=== PATIENT | female | born 1990 | race Caucasian/White ===

== ENCOUNTER 2020-11-26 22:23 | Emergency (ER) | payer OTHER ==
[~2020-11-26] VITALS: Ht 165.1 cm; Wt 56.7 kg
[2020-11-26 22:34] VITALS: BP 112/68
--- NOTE | 2020-11-26 22:34 | NUR ---
TO BED AMBULATORY
--- NOTE | 2020-11-26 22:45 | NUR ---
PATIENT BIB SELF, AMBULATORY, C/O JAW PAIN THAT RADIATES TO THE RIGHT EAR, NO PALPABLE SWELLING IN THE NECK BILATERAL, TONSILS LOOKS NORMAL BILATERAL, C/O SORE THROUTH, DENIES NASAL CONGESTION. MDHX: SINUS SX 10 YEARS AGO ALLERGIES: DUST
--- NOTE | 2020-11-26 23:36 | NUR ---
Dr. Blackburn examining patient.
[2020-11-27] MEDS ORDERED: AMOX500C25 PO (00:02)
[2020-11-27] MEDS ORDERED: ACETAMINOPHEN EXTRA STRENGTH 500 MG TAB PO ONE (00:05)
[2020-11-27] MEDS ORDERED: AMOXICILLIN 500 MG CAP PO ONE (00:05)
--- NOTE | 2020-11-27 00:13 | NUR ---
LAB AT BEDSIDE COLLECTING BLOOD SAMPLE.
[2020-11-27 00:40] VITALS: BP 94/69
--- NOTE | 2020-11-27 00:40 | NUR ---
Patient discharged with v/s stable. Written and verbal after care instructions given and explained. Patient alert, oriented and verbalized understanding of instructions. Ambulatory with steady gait. All questions addressed prior to discharge. ID band removed. Patient advised to follow up with PMD. Rx of AMOXICILIN given. Patient educated on indication of medication including possible reaction and side effects. Opportunity to ask questions provided and answered.
== END 2020-11-27 00:40 | disposition home or self-care (01) ==
LOC: MED 22:23
DX: R59.1 Generalized enlarged lymph nodes (principal); H92.01 Otalgia, right ear; M54.2 Cervicalgia; J02.9 Acute pharyngitis, unspecified
CPT/HCPCS: 86308; 99283

== ENCOUNTER 2021-03-10 09:06 | Emergency (ER) | payer OTHER ==
[~2021-03-10] VITALS: Ht 165.1 cm; Wt 56.7 kg
[~2021-03-10 09:06] MED LIST: AMOX500C25 PO
[2021-03-10 09:13] VITALS: BP 92/70
--- NOTE | 2021-03-10 09:32 | NUR ---
Rectal exam performed per DR TINEO with AUDREY GRIER at bedside during procedure. Patient tolerated well.
[2021-03-10] MEDS ORDERED: LIDO5GEL3 TP (09:36)
[2021-03-10] MEDS ORDERED: MIRABULK PO (09:36)
[2021-03-10] MEDS ORDERED: DOCU-299 PO (09:36)
--- NOTE | 2021-03-10 09:49 | NUR ---
NO NURSING INTERVENTIONS IMPLEMENTED
[2021-03-10 09:50] VITALS: BP 92/70
--- NOTE | 2021-03-10 09:50 | NUR ---
Patient discharged with v/s stable. Written and verbal after care instructions given and explained. Patient alert, oriented and verbalized understanding of instructions. Ambulatory with steady gait. All questions addressed prior to discharge. ID band removed. Patient advised to follow up with PMD. Rx of COLACE, LIDOCAINE, MIRALAX given. Patient educated on indication of medication including possible reaction and side effects. Opportunity to ask questions provided and answered. Surgery Outpatient List provided for patient.
== END 2021-03-10 09:50 | disposition home or self-care (01) ==
LOC: MED 09:06
DX: K64.8 Other hemorrhoids (principal); Z79.899 Other long term (current) drug therapy
CPT/HCPCS: 99282

== ENCOUNTER 2021-08-18 17:26 | Emergency (ER) | payer OTHER ==
[~2021-08-18] VITALS: Ht 165.1 cm; Wt 57.2 kg
[~2021-08-18 17:26] MED LIST changes: +DOCU-299 PO; +LIDO5GEL3 TP; +MIRABULK PO
[2021-08-18 17:42] VITALS: BP 91/64
--- NOTE | 2021-08-18 18:18 | NUR ---
URINE SPECIMEN COLLECTED AND WALKED TO LAB.
--- NOTE | 2021-08-18 18:26 | NUR ---
30/F BIB SELF, AA&OX4, AMBULATORY W/ STEADY GAIT; PRESENTS TO ED WITH C/O SUPRAPUBIC, ABDOMINAL AND BACK PAIN X3 DAYS 09/19 WORSENS W/ URINATION. PATIENT ALSO PRESENTS W/ DYSURIA, HEMATURIA AND HEADACHE. PATIENT STATES " I HAVE HAD A UTI SINCE MONDAY." PATIENT DENIES SEEKING MEDICAL ATTENTION FOR DX AND MEDS FOR PAIN RELIEF. -V/D, SOB, CP, FEVER, CHILLS. PMH: KIDNEY INFECTION 2019 MEDS: DENIES ALLERGIES: DUST
--- NOTE | 2021-08-18 18:40 | NUR ---
30/F BIB SELF WITH C/O LOWER ABDOMINAL PAIN RADIATING TO HER BACK X3 DAYS. STATES PAIN WORSENS WITH URINATION, REPORTS HEMATURIA AND HEADACHE. DENIES TAKING MEDICATION FOR PAIN, DENIES V/D, SOB, FEVER, CHILLS.
[2021-08-18] MEDS ORDERED: IBUPROFEN 600 MG TAB PO ONE (19:05)
[2021-08-18] MEDS ORDERED: IBUP-2213 PO (19:11)
[2021-08-18] MEDS ORDERED: NITR100C7 PO (19:11)
[2021-08-18] MEDS ORDERED: PYR100 PO (19:11)
--- NOTE | 2021-08-18 19:25 | NUR ---
Pt report given to CARRIE ALMODOVAR. Transfer of care at this time.
[2021-08-18] MEDS ORDERED: IBUPROFEN 600 MG TAB ONE (19:32)
--- NOTE | 2021-08-18 19:45 | NUR ---
PT REFUSED IBUPROFEN
[2021-08-18 20:00] VITALS: BP 91/64
--- NOTE | 2021-08-18 20:00 | NUR ---
Patient discharged with v/s stable. Written and verbal after care instructions given and explained. Patient alert, oriented and verbalized understanding of instructions. Ambulatory with steady gait. All questions addressed prior to discharge. ID band removed. Patient advised to follow up with PMD. Rx of IBRUPROFEN, MACROBID,PYRIDIUM given. Opportunity to ask questions provided and answered.
== END 2021-08-18 20:00 | disposition home or self-care (01) ==
LOC: MED 17:26
DX: N39.0 Urinary tract infection, site not specified (principal); M54.9 Dorsalgia, unspecified; Z79.899 Other long term (current) drug therapy
CPT/HCPCS: 81002; 81025; 87086; 99283

== ENCOUNTER 2022-01-02 16:16 | Emergency (ER) | payer OTHER ==
[~2022-01-02] VITALS: Ht 165.1 cm; Wt 61.2 kg
[~2022-01-02 16:16] MED LIST changes: +IBUP-2213 PO; +NITR100C7 PO; +PYR100 PO
[2022-01-02 16:37] VITALS: BP 96/62
--- NOTE | 2022-01-02 18:00 | NUR ---
C/O STUFFY NOSE X YESTERDAY, C/O COUGH, FEVER,SORE THROAT, TAPIA X TODAY. ORAL TEMP 99.1 AT THIS TIME. COVID TESTED NEGATIVE TODAY. PMH: MIGRAINES, SINUSITIS
--- NOTE | 2022-01-02 18:33 | NUR ---
pt swabbed for influenza at this time
[2022-01-02] MEDS ORDERED: BENZ200C4 PO (18:55)
[2022-01-02] MEDS ORDERED: FLUT0.0560 NS (18:55)
[2022-01-02 19:10] VITALS: BP 110/66
== END 2022-01-02 19:16 | disposition home or self-care (01) ==
LOC: MED 16:16
DX: J32.9 Chronic sinusitis, unspecified (principal)
CPT/HCPCS: 99283

== ENCOUNTER 2022-09-08 23:02 | Emergency (ER) | payer OTHER ==
[~2022-09-08] VITALS: Ht 165.1 cm; Wt 59.0 kg
[~2022-09-08 23:02] MED LIST changes: +BENZ200C4 PO; +FLUT0.0560 NS
[2022-09-08 23:20] VITALS: BP 102/58
--- NOTE | 2022-09-08 23:23 | NUR ---
TO LOBBY A/W BED AMBULATORY
--- NOTE | 2022-09-09 00:15 | NUR ---
PT TO BED #9
--- NOTE | 2022-09-09 00:30 | NUR ---
RECEIVED IN BED 9 WITH C/O RECTAL BLEEDING WITH HEMORRHOIDS, BILATERAL FLANK PAIN, WITH LOWER AND UPPER TOO. F0R 10DAYS
[2022-09-09 00:42] LABS: BASOPHILS # (AUTO) 0.1 K/uL (0.00-0.22); BASOPHILS % (AUTO) 0.9 % (0.0-2.0); EOSINOPHILS # (AUTO) 0.3 K/uL (0-0.4); EOSINOPHILS % (AUTO) 2.9 % (0.0-4.0); HEMOGLOBIN 12.6 g/dL (12.0-16.0); LYMPHOCYTES # (AUTO) 2.8 K/uL (2.5-16.5); LYMPHOCYTES % (AUTO) 31.8 % (20.5-51.1); MEAN CORPUSCULAR HEMOGLOBIN 30 pg (27-31); MEAN CORPUSCULAR HGB CONC 33 g/dL (33-37); MEAN CORPUSCULAR VOLUME 89.6 fL (80-94); MONOCYTES # (AUTO) 0.7 K/uL (0.8-1.0); MONOCYTES % (AUTO) 8.1 % (1.7-9.3); NEUTROPHILS # (AUTO) 4.9 K/uL (1.8-7.7); NEUTROPHILS % (AUTO) 56.3 % (42.2-75.2); PLATELET COUNT (AUTO) 252 K/uL (140-450); RED BLOOD CELL COUNT(AUTO) 4.24 MIL/uL (4.20-5.40); RED CELL DISTRIBUTION WIDTH 12.6 % (11.6-13.7); WHITE BLOOD COUNT (AUTO) 8.7 K/uL (4.8-10.8)
[2022-09-09 00:57] LABS: ANION GAP 9.3 (8-16); CARBON DIOXIDE 27.7 mmol/L (21-32); CREATININE 0.7 mg/dL (0.6-1.3); TOTAL BILIRUBIN 0.3 mg/dL (0.0-1.0)
[2022-09-09 01:11] LABS: APPEARANCE,URINE CLEAR (CLEAR); BILIRUBIN,URINE NEGATIVE (NEGATIVE); BLOOD, URINE NEGATIVE (NEGATIVE); COLOR,URINE YELLOW (YELLOW); LEUKOCYTE ESTERASE ,URINE 3+ (NEGATIVE); NITRITE, URINE NEGATIVE (NEGATIVE); UGLUCOSE NEGATIVE (NEGATIVE)
--- NOTE | 2022-09-09 02:00 | NUR ---
CONTINUES WITH C/O OF LOWER ABDOMINAL.
[2022-09-09] MEDS ORDERED: CEPH-588 PO (03:50)
[2022-09-09 03:55] VITALS: BP 109/62
== END 2022-09-09 03:55 | disposition home or self-care (01) ==
LOC: MED 23:02
DX: N39.0 Urinary tract infection, site not specified (principal); N20.0 Calculus of kidney; Z79.899 Other long term (current) drug therapy
CPT/HCPCS: 36415; 74176; 76856; 80053; 81001; 81025; 83690; 85025; 87086; 93976; 99284; Q0092